=== PATIENT | male | born 1990 | race Caucasian/White ===

== ENCOUNTER 2020-01-12 03:36 | Inpatient (IN) | payer MEDICAID, SELFPAY ==
[2020-01-12] VITALS (8 sets, daily range): BP systolic 114–153; BP diastolic 76–103; PULSE 71–109; RESP 16–18; TEMP 36.6–37.1; O2SAT 95–100; BMI 25.9; BMI 25.2; BMI 25.3
--- NOTE | 2020-01-12 03:50 | ED.VIS.GEN ---
History of Present Illness Chief Complaint: Substance Abuse Narrative: 29-year-old male with a history of methamphetamine and fentanyl use since age 17 presents requesting inpatient detox. He states that he has never been in formal detox before. He uses methamphetamine and fentanyl by snorting daily. He denies alcohol use or other drug use. He denies a history of depression or suicidal thoughts/ideation. His last use was 8 PM last evening-fentanyl. Prior similar symptoms: Yes Capacity - Capacity Assessment Tool Can the patient make a choice & communicate that choice?: Yes Past Medical History - Allergies and Home Meds Allergies/Adverse Reactions: Allergies No Known Allergies Allergy (Verified 01/12/20 03:37) Prior records reviewed: Yes Smoking Status: Current every day smoker Review of Systems General: Denies: Chills, Fever, Sweats Eyes: Denies: Visual changes - bilaterally, Diplopia ENT: Denies: Rhinorrhea, Sore throat Cardiovascular: Denies: Chest pain, Palpitations Respiratory: Denies: Dyspnea, Cough, Dyspnea on exertion Gastrointestinal: Denies: Abdominal pain, Nausea, Vomiting, Diarrhea, Melena, Hematochezia Genitourinary: Denies: Dysuria, Hematuria, Frequency Musculoskeletal: Denies: Back pain, Extremity Pain Skin: Denies: Rash, Wounds Neurological: Denies: Headache, Weakness, Numbness Physical Exam Vital Signs/Narrative: Vital Signs Temp Pulse Resp BP Pulse Ox 01/12/20 03:38 98.2 F 104 H 18 153/103 H 99 General: Well nourished, Well developed, No Acute Distress Head: Normocephalic, Atraumatic Eyes: Perrl, EOMI ENT: Moist mucous membranes, No rhinorrhea Neck: Supple, Nontender Cardiovascular: Regular rate, Regular rhythm, No murmurs Respiratory: No distress, CTA bilaterally, Chest nontender Abdomen: Soft, Nontender, Nondistended, Normal bowel sounds Back: Nontender, Normal Inspection Extremities: Nontender, No edema Skin: Normal color, No rash Neurological: Alert, Oriented x3, Cranial nerves II-XII grossly intact, Normal Strength, Normal Sensation Psychological: Normal affect, Normal Mood Diagnostic/Tx/Re-eval - Medical Decision Making Adequate clearance labs are within normal limits. Talk screen is positive for fentanyl, opiates, marijuana, and methamphetamines. He was medically cleared. I spoke with the hospitalist. He will be admitted to detox. His [facility] score was calculated at 25. ED Disposition - Plan for ED Patient: Disposition: Acute Care Hospital [facility] Diagnosis: Opiate withdrawal, Fentanyl dependence, Methamphetamine abuse, Cannabis abuse
[2020-01-12 04:14] LABS: Amphetamine Urine VISTA POSITIVE (<1000 ng/mL); Barbiturate Urine VISTA NEGATIVE (< 200 ng/mL); Benzodiazepine Urine VISTA NEGATIVE (< 200 ng/mL); Cocaine Urine VISTA NEGATIVE (< 300 ng/mL); Ecstacy Urine VISTA POSITIVE (< 500 ng/mL); Methadone Urine VISTA NEGATIVE (< 300 ng/mL); PCP Urine VISTA NEGATIVE (< 25 ng/mL); THC Urine VISTA POSITIVE (< 50 ng/mL); Vista UDS pH Range 6
[2020-01-12 04:20] LABS: ALB/GLOB Ratio 1.1 RATIO (0.9-2.4); AST(SGOT) 15 U/L (15-37); Alanine Aminotransfer ALT/SGPT 26 U/L (16-61); Albumin, Serum 3.9 g/dL (3.2-5.0); Alkaline Phosphatase 59 U/L (45-117); Anion Gap 6 (5-15); BUN 17 mg/dL (7-18); BUN/Creat Ratio 14.4 RATIO (10-20); Chloride 104 mmol/L (98-107); Creatinine, Serum 1.18 mg/dL (0.70-1.30); EST Glomerular Filtration Rate 78 mL/min (>60); Est Glom Filt Rate - Afr Amer 95 mL/min (>60); Estimated Creatinine Clearance 97.09 ml/min; Globulin 3.7 g/dL (2.2-4.2); Glucose 97 mg/dL (74-106); Potassium 3.2 mmol/L (3.5-5.1); Protein, Total 7.6 g/dL (6.4-8.2); Sodium Level 139 mmol/L (136-145)
--- NOTE | 2020-01-12 04:21 | PCM.HP.STD ---
Problem List (1) Opiate withdrawal Status: Acute (2) Tobacco use Status: Chronic (3) Cannabis abuse Status: Chronic (4) Methamphetamine abuse Status: Chronic (5) Fentanyl dependence Status: Chronic History of Present Illness Date of Admission: 01/12/20 Chief Complaint: Acute opiate withdrawal The patient is a 29 y/o M w/ PMHx: Tobacco use, Polysubstance abuse inclusive of snorted methamphetamine, cannabis smoked and more recently usage of fentanyl snorted for at least the past 6 months, noted he started meth at age 17 who presents to the [facility] ED on 01/12/20 w/ noted opiate withdrawal onset starting early this am following last dose 7-8 pm (1/2 gm) on 01/11/20 with abdominal pain with nausea in addition to diarrhea, generalized body aches and pains, rhinorrhea, piloerection, fatigue, severe bilateral lower extremity restless leg, sweating, yawning. Patient interested in attaining clean status and has never been in acute detoxification prior. Work-up in the ED included T 98.2, heart rate 104, BP 153/103, respiratory rate 18, 99% on room air, CBC pending upon admission, CMP with potassium 3.2 otherwise not market appearing, urine drug screen with positive opiate, amphetamine, methamphetamine, cannabis, ethyl alcohol level pending. Past Medical History Past Medical History (Chronic Problems): Chronic Problems Tobacco use (Chronic) Cannabis abuse (Chronic) Methamphetamine abuse (Chronic) Fentanyl dependence (Chronic) Allergies No Known Allergies Allergy (Verified 01/12/20 03:37) Home Medications: Ambulatory Orders Medication Instructions Recorded NK 01/12/20 Surgical History: - - History of trauma to left lower extremity with compartment syndrome and follow-up surgical intervention. Psychiatric History: No pertinent psych hx Lives: With Family - Patient was with his mother who does not use any substances. Smoking Status: Current every day smoker - Patient with ongoing 1 pack/day cigarette tobacco usage. Tobacco Use: Cigarettes Alcohol: Occasional Drugs: - - Patient remotely used IV drugs and has smoked methamphetamine but primarily now will smoke cannabis, snort methamphetamine and snorted fentanyl. - *Family History Maternal History Items: Hypertension Paternal History Items: - - Father with no market medical history including heart disease, diabetes, cancer. Review of Systems Constitutional: Reports: Anorexia, Malaise, Weakness, Fatigue. Denies: Chills, Fever, Weight Change HEENT: Reports: Nasal Congestion, Sinus Congestion. Denies: Head Aches, Sinus Drainage Cardiovascular: Denies: Chest Pain, Palpitations Respiratory: Denies: Cough, Shortness of breath at rest, Sputum production Gastrointestinal: Reports: Abdominal Pain, Diarrhea, Nausea. Denies: Vomiting Genitourinary: Denies: Dysuria Musculoskeletal: Reports: Joint Pain, Muscle pain. Denies: Joint Tenderness Skin: Denies: Rash, Wounds Neurological: Reports: - - Evident restless legs bilateral lower extremities.. Denies: Focal weakness, Numbness, Tingling Psychiatric: Denies: Anxiety, Depression, Homicidal Ideations, Suicidal Ideations Hematologic/ Lymphatic: Denies: Easy Bruising, Easy Bleeding VTE Information - Inpt Only VTE Present on Admission: No VTE Mechan Device Prophylaxis: None VTE Pharm Prophylaxis ordered?: No Reason prophylaxis not ordered:: Treatment Not Indicated Patient Problems: Active and Suspected Problems Opiate withdrawal (Acute) Subjective: Seated upright in the ED bed, agitated, moving extremities. Objective: Physical Examination: General: awake, alert, oriented x 3 and cooperative, seated upright in the ED bed, agitated, evident withdrawal. Skin: normal color, turgor, no icterus, cyanosis aside occasional abrasions to the extremities. HEENT: AT/NC, EOMI, PERRLA, MMM, no carotid bruits or JVD noted. Lungs: CTA bilaterally, moderate effort, mild decrease BL bases, no rales, ronchi or wheezing. Heart: Mildly tachycardic with regular rhythm; no gallop, rub audible. Abdomen: soft, NTTP, ND, normal BS, no obvious HSM. Extremities: no cyanosis, clubbing, or edema. Neurological: patient awake, alert, oriented x 3; cognitive function appears baseline intact; pupils equally reactive to light and accomodation; cranial nerves II-XII grossly normal, moving all 4 extremities, no focal deficits, strength preserved but obviously agitated, moving lower extremities throughout examination but at the same time fatigued appearance. Psychiatric: affect appears fatigued and agitated, no acute evidence of depressive or anxiety feelings. - Physical Exam Vitals/I&O's: Vital Signs Temp Pulse Resp BP Pulse Ox 98.2 F 104 H 18 153/103 H 99 01/12/20 03:38 01/12/20 03:38 01/12/20 03:38 01/12/20 03:38 01/12/20 03:38 Oxygen Delivery Method Room Air Weight: 180 lb 5.41 oz Body Mass Index (BMI) 25.9 Laboratory Results 01/12/20 03:50: Sodium 139, Potassium 3.2 L, Chloride 104, Carbon Dioxide 29.0, Anion Gap 6, BUN 17, Creatinine 1.18, Estim Creat Clear Calc 97.09, Est GFR (MDRD) Af Amer 95, Est GFR (MDRD) Non-Af 78, BUN/Creatinine Ratio 14.4, Glucose 97, Calcium 9.0, Total Bilirubin 0.30, AST 15, ALT 26, Alkaline Phosphatase 59, Total Protein 7.6, Albumin 3.9, Globulin 3.7, Albumin/Globulin Ratio 1.1 01/12/20 03:50: Ethyl Alcohol Pending 01/12/20 03:55: Urine Opiates Screen POSITIVE H, Urine Methadone Screen NEGATIVE, Ur Barbiturates Screen NEGATIVE, Ur Phencyclidine Scrn NEGATIVE, Ur Amphetamines Screen POSITIVE H, U Methamphetamin-MDMA POSITIVE H, U Benzodiazepines Scrn NEGATIVE, Urine Cocaine Screen NEGATIVE, U Cannabinoids Screen POSITIVE H, Ur Drug Screen Comment Assessment/Plan All Active Problems Opiate withdrawal (Acute) The patient is a 29 y/o M w/ PMHx: Tobacco use, Polysubstance abuse inclusive of snorted methamphetamine, cannabis smoked and more recently usage of fentanyl snorted for at least the past 6 months, noted he started meth at age 17 who presents to the [facility] ED on 01/12/20 w/ noted opiate withdrawal onset. 1. Acute Opiate Withdrawal: Will admit to [facility], routine labs obtained in the ED except CBC which will be obtained, urine drug screen notable, will initiate and continue on tapering course of Subutex, as needed PRN agents for symptom control, 1 L normal saline, IV antiemetics, Tylenol as needed for pain. Consult case management to assist with transition following discharge and arranging [facility] involvement. 2. Polysubstance Abuse: To be cautious despite denied IVDA will obtain HIV and hepatitis panel although patient currently not candidate for hep C treatment as needs to be clean, sober x 6 months, documented attendance NA or AA meetings, counseling and ongoing negative drug screens. Encouraged PCP establishment and follow-up. 3. Tobacco Abuse: Encouraged cessation, inpatient consultation per RT, NR if desired. 4. Hypokalemia: Admission K+ 3.2, supplementation given, repeat level in AM. 5. DVT prophylaxis: Low risk, ambulation encouraged. Inpatient E&M: 80013 Init Hosp L3
[2020-01-12 04:31] LABS: Alcohol, Blood (Medical)-Serum < 3.0 mg/dL
[2020-01-12] MEDS: 0.9% Normal Saline 1,000 ML 999 ML IV (05:51)
[2020-01-12] MEDS: 0.9% Saline Lock 10 ML Syringe IV (05:58)
[2020-01-12 06:06] LABS: Absolute Lymphocyte Count 3.28 X10^3/uL (0.83-4.51); Absolute Neutrophil Count 5.1 X10^3/uL (2.0-7.7); Basophil# 0.04 X10^3/uL; Basophil% 0.4 % (0-1); Eosinophil# 0.16 X10^3/uL; Eosinophils% 1.7 % (0-5); Hematocrit 43.7 % (40-54); Lymphocyte # 3.28 X10^3/ul (4.0); Lymphocyte % 33.8 % (19-41); Mean Corp Hgb Conc 34.3 g/dL (32-36); Mean Corpuscular Hgb 31.6 pg (27.0-32.0); Mean Platelet Vol. 9.2 fl (6.2-12.0); Monocyte# 1.05 X10^3/uL; Monocyte% 10.8 % (0-10); NRBC Flagged by Analyzer 0 % (0-5); Neutrophil # 5.13 X10^3/uL (2.7-7.7); Platelet Count 249 K/mm3 (150-450); RBC Distribution Width CV 11.6 % (11.6-14.6); Red Blood Count 4.75 M/mm3 (4.6-6.2); White Blood Count 9.7 K/mm3 (4.4-11.0)
[2020-01-12] MEDS: Buprenorphine HCl 2 MG TAB.SUBL SL ×3 (07:23→23:54)
--- NOTE | 2020-01-12 07:44 | PCM.PN.BLA ---
Progress Note 29-year-old gentleman with history of substance abuse admitted with acute opioid withdrawal 1. Acute opioid withdrawal ?Admitted to regular nursing floor where patient is currently being managed with Subutex for medical stabilization 2. Polysubstance abuse ?Patient took screen was positive for methamphetamines and cannabis as well as fentanyl counseled on cessation 3. Tobacco dependence -counseled on cessation, offered nicotine patch for tobacco cravings 4. Hypokalemia ?Corrected per protocol 5. DVT prophylaxis ?Low risk did encourage early ambulation STROKE Vital Signs/Narrative: Vital Signs Temp Pulse Resp BP Pulse Ox 01/12/20 07:15 84 01/12/20 06:53 95 01/12/20 05:37 98 F 109 H 16 144/91 H 96 01/12/20 05:00 98.2 F 104 H 16 153/103 H 97
--- NOTE | 2020-01-12 08:59 | CASEMGMT ---
Social Work Note Pt is at [facility] for Opiate withdrawal. SW placed a call to Radha at [facility] and left message that pt will need to be seen. Cristina Anderson IT GENERALIST, REVENUE SETTLEMENTS ADMINISTRATOR
[2020-01-12] MEDS: Methocarbamol 750 MG Tablet 1500 MG PO ×2 (09:19→17:57)
[2020-01-12] MEDS: cloNIDine HCl 0.1 MG Tablet PO ×2 (09:19→17:57)
[2020-01-12 09:46] LABS: HIV - WCH Non-Reactive (Nonreactive); Hepatitis B Surface Antibody Non-Reactive; Hepatitis B Surface Antigen Non-Reactive (Nonreactive); Hepatitis C Antibody Non-Reactive (Nonreactive)
--- NOTE | 2020-01-12 13:50 | ADDICTION ---
This ticket writer met with patient in his room to complete initial [facility] assessment and begin discharge planning. patient was alert/oriented x4 and participated actively throughout meeting. This ticket writer provided patient with resources for ongoing treatment and encouraged patient to engage in follow-up services following discharge from [facility]. Patient amiable and completed intake paperwork for [facility]. Patient agreeable to engage in Residential treatment following discharge from [facility] and will engage in biopsychosocial assessment tomorrow (01/13/2020). Patient signed SARAH for [facility]. This ticket writer will collaborate with [facility] Residential Admissions Team for admit. [facility] LOC: 4.0 Medically Managed Intensive Inpatient Services Dimension1: Acute Intoxication and/or Withdrawal Potential Patient reports last date of use (Fentanyl/Methamphetamine) was at 8pm 01/11/2020. He reprots that Methamphetamine is his primary doc. He reports use by insufflation, no hx of IV use. He reports some withdrawal symptoms, including restless leg, irritability, anxiety, nausea, vomiting, diarrhea. Client's chart indicates that he is prescribed Buprenorphine for symptom management. Dimension2: Biomedical Conditions and Complications Patient reports no significant BMC/C. Dimension3: Emotional, Behavioral or Cognitive Conditions/Concerns E: Patient presented with euthymic mood/broad affect. Reports some irritability/anxiety related to withdrawal symptoms. Reports no current or historical SI/HI. Has regulated mood. This ticket writer will further assess at next session. B: Reports ability to manage impulses. Reports ability to care for self. C: Patient was alert/oriented x4 and participated appropriately throughout session. Presents with average intelligence. Dimension4: Readiness for Change Patient states that he is willing to do anything to get sober. He appears to be in the preparation stage of change as evidenced by his identification of problem behaviors with willingness to plan for ongoing treatment/behavioral modification. He reports internal and external motivation. Patient appears to have insight into addiction and consequences. Willing to engage in Residential treatment following medical withdrawal management. Dimension5: Relapse, Continued Use or Continued Problem Potential Patient is at a high risk of relapse based on report of active, regular use (methamphetamine) for 6 years and recent use of Fentanyl (1 month). Patient reports minimal relapse prevention skills/coping skills and reports no prior sober time since initial use of methamphetamine. Patient reports cravings/triggers to use and states that he will likely relapse if he does not compete medical withdrawal management and engage in ongoing, follow-up treatment. Dimension6: Recovery/Living Environment Patient reports that he has a safe, sober, supportive place to go following medical withdrawal management but is requesting to be screened for Residential treatment with [facility]. He has an active warrant in his home county. He reports limited sober support/ no mutual aid attendance. Patient did not report current employment.
--- NOTE | 2020-01-12 14:51 | CHAPLAIN ---
Type of Pastoral Visit _x__ Initial Visit ___ Follow-up Visit ___ On-call Visit ___ General Patient Visit ___ Spiritual Assessment ___ Family Conference ___ Bereavement ___ Rapid Response ___ Code Blue ___ Other (describe below) Pastoral Care Referral From _x__ Patient ___ Family ___ Nurse ___ Physician ___ Broach Grinder ___ Artificial Snow Making Machine Operator ___ Other (describe below) Sacrament/Intervention _x__ Active listening ___ Anointing ___ Christianity ___ Bereavement ___ Communion ___ Arianna exploration ___ _x__ Life review _x__ Prayer ___ Reconciliation ___ Sacrament of Sick _x__ Supportive presence ___ Wedding ___ Other (describe below) Pastoral Comments patient was very open to talk about self, his addiction, life history, and frequently stated, I am so done with this referring to addiction; pt states he started with drugs at age 17 and does not know what it is like to feel good; pt is willing to enter rehab and plans to participate in [facility] program at discharge; pt says that he has good support from his mother/step-father with whom he lives and that support is available from the great people that I work with at [facility] who are more like family to me; patient does not have a arianna group connection or heritage but states I am not opposed to it, but just never have had that; patient is open to further supportive visits with this multi care technician and was welcoming of a prayer at conclusion of visit
[2020-01-12] MEDS: hydrOXYzine PAM 25 MG Capsule 50 MG PO (17:57)
[2020-01-12] MEDS: Dicyclomine 10 MG Capsule 20 MG PO (17:57)
[2020-01-12] MEDS: traZODone 100 MG Tablet PO (23:58)
[2020-01-13 02:57] VITALS: BP 109/72; PULSE 69; RESP 16; TEMP 36.4; O2SAT 98
[2020-01-13] MEDS: Methocarbamol 750 MG Tablet 1500 MG PO ×2 (03:05→14:44)
[2020-01-13 07:00] VITALS: O2SAT 96
--- NOTE | 2020-01-13 07:34 | PCM.PN.HOSP ---
Patient Problems: Active and Suspected Problems Opiate withdrawal (Acute) Reason for Visit: acute opioid withdrawal Subjective: 29-year-old gentleman with history of substance abuse admitted with acute opioid withdrawal Objective: GENERAL: cooperative HEENT: Atraumatic; EYES; Anicteric, Normal Conjunctiva NECK; supple, normal thyroid, RESPIRATORY: Diminished to auscultation CARDIOVASCULAR: Regular S1 S2, GI: soft, normoactive bowel sounds, : No Renal angle tenderness; EXTREMITIES: No edema, no clubbing, MUSCULOSKELETAL: no muscle waisting NEURO: Awake; no lateralizing signs. SKIN: No Rash PSYCH; Flat affect Vitals/I&O's: Vital Signs Temp Pulse Resp BP Pulse Ox 97.5 F L 69 16 109/72 98 01/13/20 02:57 01/13/20 02:57 01/13/20 02:57 01/13/20 02:57 01/13/20 02:57 Oxygen Delivery Method Room Air Weight: 80.1 kg Body Mass Index (BMI) 25.2 Intake and Output for Last 24 Hours 01/11/20 01/12/20 01/13/20 23:59 23:59 23:59 Intake Total 2180 / 2180 300 / 300 Balance 2180 / 2180 300 / 300 Laboratory Results 01/12/20 05:50: Hep Bs Antigen Non-Reactive, Hep Bs Antibody Non-Reactive, Hepatitis C Antibody Non-Reactive, HIV 1&2 Antibody Non-Reactive Current Medications Buprenorphine HCl (Buprenorphine Hcl) 4 mg SL Q8H RHYS; Taper Stop: 01/15/20 07:59 Last Admin: 01/12/20 23:54 Dose: 4 mg Documented by: Clonidine (Catapres) 0.1 mg PO Q8H PRN PRN PRN Reason: RESTLESSNESS Last Admin: 01/12/20 17:57 Dose: 0.1 mg Documented by: Dextrose (D50w Syringe) 0 gm IV X1 PRN; Protocol PRN Reason: Hypoglycemia Dicyclomine HCl (Bentyl) 20 mg PO Q6H PRN PRN PRN Reason: Abdominal Discomfort Last Admin: 01/12/20 17:57 Dose: 20 mg Documented by: Gabapentin (Neurontin) 300 mg PO Q8H PRN PRN PRN Reason: moderate to severe anxiety Glucagon () 1 mg IM .X1 PRN PRN Reason: Hypoglycemia Hydralazine HCl (Apresoline Iv) 10 mg IV Q4H PRN PRN PRN Reason: SBP > 160 Hydroxyzine Pamoate (Vistaril Pamoate Capsule) 50 mg PO Q6H PRN PRN PRN Reason: mild anxiety Last Admin: 01/12/20 17:57 Dose: 25 mg Documented by: Loperamide HCl (Imodium) 2 mg PO Q4H PRN PRN PRN Reason: LOOSE STOOLS Methocarbamol (Methocarbamol) 1,500 mg PO Q6H PRN PRN PRN Reason: MUSCLE SPASM Last Admin: 01/13/20 03:05 Dose: 1,500 mg Documented by: Nicotine (Nicoderm Cq (Pbkc)) 21 mg TRANSDERM. DAILY RHYS Last Admin: 01/12/20 05:50 Dose: 21 mg Documented by: Nutritional Formula (Lactose Free) (Ensure Enlive) 120 ml PO 4X/DAY RHYS Last Admin: 01/12/20 20:55 Dose: Not Given Documented by: Ondansetron HCl (Zofran) 8 mg PO Q8H PRN PRN PRN Reason: NAUSEA Sodium Chloride () 10 - 40 ml IV UD PRN PRN Reason: SALINE FLUSH Last Admin: 01/12/20 05:58 Dose: 10 ml Documented by: Trazodone HCl (Desyrel) 100 mg PO QHS PRN PRN PRN Reason: INSOMNIA Last Admin: 01/12/20 23:58 Dose: 100 mg Documented by: Medical Necessity - Tobacco Use Smoking Status: Current every day smoker Tobacco Use: Cigarettes Assessment/Plan All Active Problems Opiate withdrawal (Acute) 29-year-old gentleman with history of substance abuse admitted with acute opioid withdrawal 1. Acute opioid withdrawal ?Admitted to regular nursing floor where patient is currently being managed with Subutex for medical stabilization 2. Polysubstance abuse ?Patient took screen was positive for methamphetamines and cannabis as well as fentanyl counseled on cessation 3. Tobacco dependence -counseled on cessation, offered nicotine patch for tobacco cravings 4. Hypokalemia ?Corrected per protocol 5. DVT prophylaxis ?Low risk did encourage early ambulation Inpatient E&M: 50322 Subs Hosp L2
[2020-01-13] MEDS: Buprenorphine HCl 2 MG TAB.SUBL SL ×3 (07:53→23:47)
[2020-01-13 07:58] VITALS: BP 104/56; PULSE 72; RESP 18; TEMP 36.5; O2SAT 98
--- NOTE | 2020-01-13 14:22 | ADDICTION ---
This senior underwriter met with patient, in his room, to complete full diagnostic assessment, ASA assessment and discharge plan. Patient was alert/oriented x4 and participated appropriately throughout this session. This senior underwriter will provide [facility] client's full assessment upon completion. Patient has committed to engage in residential treatment following discharge from [facility]. This senior underwriter will coordinate with [facility] to provide continuity of care for patient. [facility] LOC: 4.0 Medically Managed Intensive Inpatient Treatment Dimension1: Acute Intoxication/Withdrawal Potential: Patient reports that his last date of use was 01/11/2020. Is currently engaged in medical withdrawal management with [facility] and is utilizing Buprenorphine to manage symptoms. He reports that he has experienced the following withdrawal symptoms: nausea, vomiting, fatigue, agitation, body aches, restless leg, sweating. He reports that these symptoms are currently managed. Patient is not interested in tobacco cessation. Dimension2: Biomedical Conditions/Concerns No significant BMC/C reported. Dimension3: Emotional, Behavioral, Cognitive Conditions/Complications E: Patient presented with euthymic mood/broad affect. Appears emotionally regulated. Reports minimal depression/anxiety symptoms noting that these symptoms are manageable/situational. B: Patient reports no SI/HI, isolation, aggression, outbursts or desire to self-harm C: Patient was alert/oriented, appeared to understand session content and appears able to utilize abstract thinking. Presents with average intelligence. Dimension4: Readiness to Change Patient reports willingness to engage with Residential following medical withdrawal management, but appeared resistant to directly admitting due to legal issues. Patient appears to be in the preparation stage of change as evidenced by his identification of problem behaviors with verbalization of plans to modify behaviors. Dimension5: Relapse, Continued Use or Continued Problem Potential Patient is at a high risk of relapse based on extensive use history, rapid progression of use, no significant period of abstinence. He reports no knowledge of coping skills/relapse prevention skills. Dimension6: Recovery/Living Environment Patient states that he lives with his mother and that the home is a safe environment, however, he reports that he has used in the home and outside of the home while living there. He reports that his mother is his primary support person. He did not report other sober support people, is not affiliated with mutual aid/12 step groups or voodoo organization. He is engaged with [facility] Peer Support and reports willingness to engage in Residential treatment following completion of medical withdrawal management.
[2020-01-13] MEDS: hydrOXYzine PAM 25 MG Capsule 50 MG PO (14:44)
[2020-01-13] MEDS: Dicyclomine 10 MG Capsule 20 MG PO (14:45)
[2020-01-13] MEDS: cloNIDine HCl 0.1 MG Tablet PO (14:52)
[2020-01-13 15:02] VITALS: BP 122/75; PULSE 79; RESP 18; TEMP 36.7; O2SAT 98
[2020-01-13 20:18] VITALS: BP 111/61; PULSE 80; RESP 16; TEMP 36.8; O2SAT 97
[2020-01-13] MEDS: traZODone 100 MG Tablet PO (23:51)
[2020-01-14 02:34] VITALS: BP 105/56; PULSE 65; RESP 16; TEMP 36.8; O2SAT 98
--- NOTE | 2020-01-14 07:43 | PN_ITS ---
Patient Problems: Active and Suspected Problems Opiate withdrawal (Acute) Reason for Visit: acute opioid withdrawal Subjective: Patient is a 29-year-old gentleman currently on admission for acute opiate withdrawal undergoing medical stabilization. Seen this a.m. still complains of leg cramps but is overall condition continues to improve Objective: GENERAL: cooperative HEENT: Atraumatic; EYES; Anicteric, Normal Conjunctiva NECK; supple, normal thyroid, RESPIRATORY: Diminished to auscultation CARDIOVASCULAR: Regular S1 S2, GI: soft, normoactive bowel sounds, : No Renal angle tenderness; EXTREMITIES: No edema, no clubbing, MUSCULOSKELETAL: no muscle waisting NEURO: Awake; no lateralizing signs. SKIN: No Rash PSYCH; Flat affect Vitals/I&O's: Vital Signs Temp Pulse Resp BP Pulse Ox 98.3 F 65 16 105/56 L 98 01/14/20 02:34 01/14/20 02:34 01/14/20 02:34 01/14/20 02:34 01/14/20 02:34 Oxygen Delivery Method Room Air Weight: 80.1 kg Body Mass Index (BMI) 25.2 Intake and Output for Last 24 Hours 01/12/20 01/13/20 01/14/20 23:59 23:59 23:59 Intake Total 2180 / 2180 1500 / 1800 500 / 500 Balance 2180 / 2180 1500 / 1800 500 / 500 Current Medications Buprenorphine HCl (Buprenorphine Hcl) 2 mg SL Q8H RHYS; Taper Stop: 01/15/20 07:59 Last Admin: 01/13/20 23:47 Dose: 2 mg Documented by: Clonidine (Catapres) 0.1 mg PO Q8H PRN PRN PRN Reason: RESTLESSNESS Last Admin: 01/13/20 14:52 Dose: 0.1 mg Documented by: Dextrose (D50w Syringe) 0 gm IV X1 PRN; Protocol PRN Reason: Hypoglycemia Dicyclomine HCl (Bentyl) 20 mg PO Q6H PRN PRN PRN Reason: Abdominal Discomfort Last Admin: 01/13/20 14:45 Dose: 20 mg Documented by: Gabapentin (Neurontin) 300 mg PO Q8H PRN PRN PRN Reason: moderate to severe anxiety Glucagon () 1 mg IM .X1 PRN PRN Reason: Hypoglycemia Hydralazine HCl (Apresoline Iv) 10 mg IV Q4H PRN PRN PRN Reason: SBP > 160 Hydroxyzine Pamoate (Vistaril Pamoate Capsule) 50 mg PO Q6H PRN PRN PRN Reason: mild anxiety Last Admin: 01/13/20 14:44 Dose: 50 mg Documented by: Loperamide HCl (Imodium) 2 mg PO Q4H PRN PRN PRN Reason: LOOSE STOOLS Methocarbamol (Methocarbamol) 1,500 mg PO Q6H PRN PRN PRN Reason: MUSCLE SPASM Last Admin: 01/13/20 14:44 Dose: 1,500 mg Documented by: Nicotine (Nicoderm Cq (Pbkc)) 21 mg TRANSDERM. DAILY [facility] Last Admin: 01/13/20 07:53 Dose: 21 mg Documented by: Nutritional Formula (Lactose Free) (Ensure Enlive) 120 ml PO 4X/DAY [facility] Last Admin: 01/13/20 20:29 Dose: 120 ml Documented by: Ondansetron HCl (Zofran) 8 mg PO Q8H PRN PRN PRN Reason: NAUSEA Sodium Chloride () 10 - 40 ml IV UD PRN PRN Reason: SALINE FLUSH Last Admin: 01/12/20 05:58 Dose: 10 ml Documented by: Trazodone HCl (Desyrel) 100 mg PO QHS PRN PRN PRN Reason: INSOMNIA Last Admin: 01/13/20 23:51 Dose: 100 mg Documented by: Medical Necessity - Tobacco Use Smoking Status: Current every day smoker Tobacco Use: Cigarettes Assessment/Plan All Active Problems Opiate withdrawal (Acute) 29-year-old gentleman with history of substance abuse admitted with acute opioid withdrawal 1. Acute opioid withdrawal ?Admitted to regular nursing floor where patient is currently being managed with Subutex for medical stabilization ?01/14/2020: Patient continues to improve clinically symptoms martinez. 2. Polysubstance abuse ?Patient took screen was positive for methamphetamines and cannabis as well as fentanyl counseled on cessation 3. Tobacco dependence -counseled on cessation, offered nicotine patch for tobacco cravings 4. Hypokalemia ?Corrected per protocol 5. DVT prophylaxis ?Low risk did encourage early ambulation Inpatient E&M: 77751 [facility] Hosp L2
[2020-01-14 08:50] VITALS: BP 114/64; PULSE 84; RESP 18; TEMP 36.8; O2SAT 98
[2020-01-14] MEDS: Buprenorphine HCl 2 MG TAB.SUBL SL ×2 (08:55→20:39)
[2020-01-14 14:02] VITALS: BP 103/64; PULSE 100; RESP 16; TEMP 36.8; O2SAT 97
[2020-01-14] MEDS: Gabapentin 300 MG Capsule PO (14:02)
--- NOTE | 2020-01-14 16:00 | ADDICTION ---
This account underwriter met with patient in his room to finalize d/c plan. Patient plans to admit directly into [facility] following discharge from [facility] and is amiable to this recommendation. He plans for his mother to transport him from [facility] directly to [facility] to complete admission.
[2020-01-14] MEDS: hydrOXYzine PAM 25 MG Capsule 50 MG PO (19:00)
[2020-01-14] MEDS: Methocarbamol 750 MG Tablet 1500 MG PO (19:00)
[2020-01-14] MEDS: traZODone 100 MG Tablet PO (20:39)
[2020-01-14 20:53] VITALS: BP 118/69; PULSE 92; RESP 16; TEMP 36.2; O2SAT 97
[2020-01-15 01:49] VITALS: BP 109/65; PULSE 87; RESP 16; TEMP 36.6; O2SAT 99
--- NOTE | 2020-01-15 07:32 | DCINST_ITS ---
- Discharge Diagnoses Current Active Problems: Current Active and Chronic Problems Opiate withdrawal (Acute) Tobacco use (Chronic) Cannabis abuse (Chronic) Methamphetamine abuse (Chronic) Fentanyl dependence (Chronic) You will use the following diet at home:: No restrictions Allergies/Adverse Reactions: Allergies No Known Allergies Allergy (Verified 01/12/20 03:37) Medications to take at Discharge [facility] 01/12/20 Primary Care Physician: NOT,DEFINED [NON-STAFF] - Test Results: Test results from this visit will be discussed in further detail at your follow- up appointment, if applicable. Please Follow Up With: [facility]
--- NOTE | 2020-01-15 07:33 | PCM.DC.SUM ---
Discharge Date and Diagnosis - Problem List Patient Problems: Active and Suspected Problems Opiate withdrawal (Acute) Date of Admission: 01/12/20 Date of Discharge: 01/15/20 - Primary Discharge Diagnosis Acute Problems: Active Problems Opiate withdrawal (Acute) - Secondary Discharge Diagnosis Chronic Problems: Chronic Problems Tobacco use (Chronic) Cannabis abuse (Chronic) Methamphetamine abuse (Chronic) Fentanyl dependence (Chronic) Hospital Course and Treatment Summary of Care Provided: 29-year-old gentleman with history of substance abuse admitted with acute opioid withdrawal 1. Acute opioid withdrawal ?Admitted to regular nursing floor where patient is currently being managed with Subutex for medical stabilization ?01/14/2020: Patient continues to improve clinically symptoms martinez. ?01/15/2020: Patient was deemed stable for discharge. Patient will follow-up at [facility] counseling services for subsequent care 2. Polysubstance abuse ?Patient took screen was positive for methamphetamines and cannabis as well as fentanyl counseled on cessation 3. Tobacco dependence -counseled on cessation, offered nicotine patch for tobacco cravings 4. Hypokalemia ?Corrected per protocol 5. DVT prophylaxis ?Low risk did encourage early ambulation Patient Problems: Active and Suspected Problems Opiate withdrawal (Acute) Objective: GENERAL: cooperative HEENT: Atraumatic; EYES; Anicteric, Normal Conjunctiva NECK; supple, normal thyroid, RESPIRATORY: Diminished to auscultation CARDIOVASCULAR: Regular S1 S2, GI: soft, normoactive bowel sounds, : No Renal angle tenderness; EXTREMITIES: No edema, no clubbing, MUSCULOSKELETAL: no muscle waisting NEURO: Awake; no lateralizing signs. SKIN: No Rash PSYCH; Flat affect - Physical Exam Vitals/I&O's: Vital Signs Temp Pulse Resp BP Pulse Ox 98 F 87 16 109/65 99 01/15/20 01:49 01/15/20 01:49 01/15/20 01:49 01/15/20 01:49 01/15/20 01:49 Oxygen Delivery Method Room Air Weight: 80.1 kg Body Mass Index (BMI) 25.2 Intake and Output for Last 24 Hours 01/13/20 01/14/20 01/15/20 23:59 23:59 23:59 Intake Total 1500 / 1800 800 / 800 Balance 1500 / 1800 800 / 800 Current Medications Buprenorphine HCl (Buprenorphine Hcl) 2 mg SL Q12H RHYS; Taper Stop: 01/15/20 07:59 Last Admin: 01/14/20 20:39 Dose: 2 mg Documented by: Clonidine (Catapres) 0.1 mg PO Q8H PRN PRN PRN Reason: RESTLESSNESS Last Admin: 01/13/20 14:52 Dose: 0.1 mg Documented by: Dextrose (D50w Syringe) 0 gm IV X1 PRN; Protocol PRN Reason: Hypoglycemia Dicyclomine HCl (Bentyl) 20 mg PO Q6H PRN PRN PRN Reason: Abdominal Discomfort Last Admin: 01/13/20 14:45 Dose: 20 mg Documented by: Gabapentin (Neurontin) 300 mg PO Q8H PRN PRN PRN Reason: moderate to severe anxiety Last Admin: 01/14/20 14:02 Dose: 300 mg Documented by: Glucagon () 1 mg IM .X1 PRN PRN Reason: Hypoglycemia Hydralazine HCl (Apresoline Iv) 10 mg IV Q4H PRN PRN PRN Reason: SBP > 160 Hydroxyzine Pamoate (Vistaril Pamoate Capsule) 50 mg PO Q6H PRN PRN PRN Reason: mild anxiety Last Admin: 01/14/20 19:00 Dose: 50 mg Documented by: Loperamide HCl (Imodium) 2 mg PO Q4H PRN PRN PRN Reason: LOOSE STOOLS Methocarbamol (Methocarbamol) 1,500 mg PO Q6H PRN PRN PRN Reason: MUSCLE SPASM Last Admin: 01/14/20 19:00 Dose: 1,500 mg Documented by: Nicotine (Nicoderm Cq (Pbkc)) 21 mg TRANSDERM. DAILY [facility] Last Admin: 01/14/20 08:55 Dose: 21 mg Documented by: Nutritional Formula (Lactose Free) (Ensure Enlive) 120 ml PO 4X/DAY [facility] Last Admin: 01/14/20 20:39 Dose: 120 ml Documented by: Ondansetron HCl (Zofran) 8 mg PO Q8H PRN PRN PRN Reason: NAUSEA Sodium Chloride () 10 - 40 ml IV UD PRN PRN Reason: SALINE FLUSH Last Admin: 01/12/20 05:58 Dose: 10 ml Documented by: Trazodone HCl (Desyrel) 100 mg PO QHS PRN PRN PRN Reason: INSOMNIA Last Admin: 01/14/20 20:39 Dose: 100 mg Documented by: Discharge Diet: No Restrictions Home Medications: Medications to take at Discharge NK 01/12/20 Primary Care Physician: NOT,DEFINED [NON-STAFF] - Please Follow Up With: [facility] Disposition: Home Minutes spent on discharge:: 25 Patient Condition:: Stable Medical Necessity - Tobacco Use Smoking Status: Current every day smoker Tobacco Use: Cigarettes Meaningful Use Info Meaningful Use Diagnoses (Choose all that apply): None applicable Inpatient E&M: 64389 [facility] Hosp
[2020-01-15 09:18] VITALS: O2SAT 95
[2020-01-15] MEDS: hydrOXYzine PAM 25 MG Capsule 50 MG PO (09:44)
[2020-01-15 09:51] VITALS: BP 115/75; PULSE 85; RESP 18; TEMP 36.6; O2SAT 99
== END 2020-01-15 10:00 | disposition home or self-care (01) | DRG 773 ==
LOC: ED 04:11 → MS3 05:09
PROVIDERS: Admitting Provider Family Medicine; Emergency Provider Emergency Medicine; Referring Provider Family Medicine; Visit Provider Internal Medicine
DX: F11.23 Opioid dependence with withdrawal (principal); F15.10 Other stimulant abuse, uncomplicated; F12.10 Cannabis abuse, uncomplicated; F17.210 Nicotine dependence, cigarettes, uncomplicated; E87.6 Hypokalemia
CPT/HCPCS: 36415; 80053; 80307; 80320; 85025; 86703; 86706; 86803; 87340; 97802; 99283; 99406; J7030; A4216; G0480

== ENCOUNTER 2020-01-22 21:30 | Emergency (ER) | payer MEDICAID, SELFPAY ==
[2020-01-12 05:16] VITALS: BMI 25.2
[2020-01-22 21:31] VITALS: BP 139/87; PULSE 80; RESP 19; TEMP 36.5; O2SAT 100; BMI 27.0
[2020-01-22 21:35] VITALS: BP 139/87; PULSE 79; RESP 19; TEMP 36.5; O2SAT 100
--- NOTE | 2020-01-22 22:14 | CT_ITS ---
STUDY: CT ABDOMEN AND PELVIS WITHOUT CONTRAST REASON FOR EXAM: Male, 29 years old. RLQ PAIN X 1 DAY, N/V, TESTICULAR PAIN, HX KS, HERNIA SX RADIATION DOSAGE (If Supplied By Facility): CTDIvol = ( 7.37 ) mGy, DLP = ( 430.91 ) mGycm TECHNIQUE: Transaxial images were obtained from the dome of the diaphragm to the symphysis pubis without oral contrast, and without intravenous contrast. Sagittal and coronal images were reconstructed. Individualized dose optimization techniques were used for this CT. COMPARISON: None. FINDINGS: The visualized lung bases are unremarkable. The visualized portions of the heart are within normal limits. Normal liver. Normal gallbladder and extrahepatic biliary system. Normal spleen. Normal pancreas. Normal bilateral adrenal glands. Normal right kidney. Normal left kidney. Normal visualized stomach. Normal small intestine. Normal colon. The appendix is visualized and appears normal. Normal abdominal aorta. Normal inferior vena cava. Normal retroperitoneum. Normal urinary bladder. Normal abdominal wall. Normal osseous structures. CT/Abdomen/Pelvis without Cont IMPRESSION: No evidence of appendicitis, acute intestinal pathology, or acute obstructive uropathy. Electronically Signed: Ryan Mota MD at 23:00 EDT Tel , Service support ,
--- NOTE | 2020-01-22 22:15 | ED.VIS.GEN ---
History of Present Illness Chief Complaint: Abd Pain Informant: Patient Narrative: Presents with right lower quadrant pain. He stated he woke up and had nausea and vomiting throughout the day. 10 times. No blood. Normal bowel movement this morning. He developed right lower abdominal pain approximately 7-8 hours ago. He describes a continuous sharp pain. Never had this before. History of inguinal hernia repair x2 bilateral when he was a young child. Just got out of rehab for narcotic abuse. He stated he has been sober. No fevers or chills. Still has his appendix and gallbladder. Severity is moderate. Relieved when he curls up in a ball and apply steady pressure to it. Denies any urinary symptoms. History of kidney stone x2 in the past - Past Medical History (1) Opiate withdrawal Status: Acute (2) Cannabis abuse Status: Chronic (3) Fentanyl dependence Status: Chronic (4) Methamphetamine abuse Status: Chronic (5) Tobacco use Status: Chronic Past Medical History - Allergies and Home Meds Allergies/Adverse Reactions: Allergies ofloxacin [From Floxin] Adverse Reaction (Verified 01/22/20 21:35) [facility] Primary Care Physician: Gordo Colon DO [NON CLINICAL AFFILIATE] - Prior records reviewed: Yes Past Medical History: - - Problem list, kidney stone Surgical History: - - History of trauma to left lower extremity with compartment syndrome and follow-up surgical intervention. Smoking Status: Current every day smoker Alcohol: None Drugs: None - Family History Maternal Family History: Reports: Hypertension Paternal Family History: Reports: - - Father with no market medical history including heart disease, diabetes, cancer. Review of Systems General: Denies: Chills, Fever, Sweats Eyes: Denies: Visual changes - bilaterally, Diplopia ENT: Denies: Rhinorrhea, Sore throat Cardiovascular: Denies: Chest pain, Palpitations Respiratory: Denies: Dyspnea, Cough, Dyspnea on exertion Gastrointestinal: Reports: Abdominal pain, Nausea, Vomiting. Denies: Diarrhea, Melena, Hematochezia Genitourinary: Denies: Dysuria, Hematuria, Frequency Musculoskeletal: Denies: Back pain, Extremity Pain Skin: Denies: Rash, Wounds Neurological: Denies: Headache, Weakness, Numbness Physical Exam Vital Signs/Narrative: Vital Signs Temp Pulse Resp BP Pulse Ox 01/22/20 21:35 97.7 F L 79 19 H 139/87 H 100 01/22/20 21:31 97.7 F L 80 19 H 139/87 H 100 General: Well nourished, Well developed, No Acute Distress Head: Normocephalic, Atraumatic Eyes: Perrl, EOMI ENT: Moist mucous membranes, No rhinorrhea Neck: Supple, Nontender Cardiovascular: Regular rate, Regular rhythm, No murmurs Respiratory: No distress, CTA bilaterally, Chest nontender Abdomen: Soft, Nondistended, Normal bowel sounds, Tender - Dear in the right lower quadrant and right inguinal area without guarding or rebound : - - Patient has a normal genital exam including penis scrotum and testicles. Normal lie. No hernias. No testicular tenderness Back: Nontender, Normal Inspection Extremities: Nontender, No edema Skin: Normal color, No rash Neurological: Alert, Oriented x3, Cranial nerves II-XII grossly intact, Normal Strength, Normal Sensation Psychological: Normal affect, Normal Mood Diagnostic/Tx/Re-eval - Medical Decision Making Given IV fluids Zofran and Toradol. Lab work and CT abdomen pelvis obtained. Lab work shows a mild leukocytosis with no left shift. Electrolytes unremarkable. Liver function test lipase normal. Urinalysis shows nothing acute. There is 2+ bacteria but no whites in his urine. There is no reds. CAT scan of his abdomen pelvis is also normal. At this time is unclear the cause of his right lower abdominal pain. There is no colitis. His appendix is normal. There is no hernia. His testicular and groin exam is normal. I do not suspect he has a testicular torsion. There is no hernia felt. There is no hernia seen on CAT scan. Patient was also given a dose of Tylenol. At this time I feel the patient can take Tylenol and ibuprofen at home. He will follow-up as an outpatient and return if he worsens. I have a low suspicion for appendicitis with a normal-appearing appendix on CAT scan. ED Disposition - Plan for ED Patient: Disposition: Home or Assisted Living Diagnosis: Right lower quadrant abdominal pain Instructions: ED Unknown Causes of Abdominal Pain Male Prescriptions: Dicyclomine HCl [Bentyl] 20 mg PO TIDAC #20 cap Prescription Printed Ondansetron [Zofran Odt] 8 mg PO Q8H PRN PRN #20 tab PRN Reason: Nausea Prescription Printed Referrals: Gordo Colon DO [NON CLINICAL AFFILIATE] -
[2020-01-22 22:25] LABS: Absolute Lymphocyte Count 4.27 X10^3/uL (0.83-4.51); Absolute Neutrophil Count 6.2 X10^3/uL (2.0-7.7); Basophil# 0.04 X10^3/uL; Basophil% 0.3 % (0-1); Eosinophil# 0.17 X10^3/uL; Eosinophils% 1.5 % (0-5); Hematocrit 45.4 % (40-54); Hemoglobin 15.5 g/dL (13.0-16.5); Lymphocyte # 4.27 X10^3/ul (4.0); Lymphocyte % 36.5 % (19-41); Mean Corp Hgb Conc 34.1 g/dL (32-36); Mean Corpuscular Hgb 30.8 pg (27.0-32.0); Mean Corpuscular Volume 90.1 fL (80-94); Mean Platelet Vol. 9.1 fl (6.2-12.0); Monocyte# 1.03 X10^3/uL; Monocyte% 8.8 % (0-10); NRBC Flagged by Analyzer 0 % (0-5); Neutrophil # 6.15 X10^3/uL (2.7-7.7); Neutrophil % 52.6 % (47-70); Platelet Count 228 K/mm3 (150-450); RBC Distribution Width CV 11.7 % (11.6-14.6); RBC Distribution Width SD 38.5 fl (35.1-43.9); Red Blood Count 5.04 M/mm3 (4.6-6.2); White Blood Count 11.7 K/mm3 (4.4-11.0)
[2020-01-22] MEDS: Ondansetron 4 MG/2 ML Vial IV (22:25)
[2020-01-22] MEDS: 0.9% Normal Saline 1,000 ML 1000 ML IV (22:25)
[2020-01-22] MEDS: Ketorolac 15 MG/ML Vial IV (22:27)
[2020-01-22 22:39] LABS: AST(SGOT) 13 U/L (15-37); Alanine Aminotransfer ALT/SGPT 34 U/L (16-61); Albumin, Serum 3.8 g/dL (3.2-5.0); Alkaline Phosphatase 59 U/L (45-117); Anion Gap 6 (5-15); BUN 14 mg/dL (7-18); Calcium,Total 9.8 mg/dL (8.5-10.1); Chloride 108 mmol/L (98-107); Creatinine, Serum 1.08 mg/dL (0.70-1.30); EST Glomerular Filtration Rate 87 mL/min (>60); Est Glom Filt Rate - Afr Amer 105 mL/min (>60); Estimated Creatinine Clearance 106.08 ml/min; Globulin 3.8 g/dL (2.2-4.2); Glucose 87 mg/dL (74-106); Lipase 103 U/L (73-393); Protein, Total 7.6 g/dL (6.4-8.2); Sodium Level 142 mmol/L (136-145)
[2020-01-22 23:29] LABS: Mucous, Urine 0 SEEN /hpf (<or=2+); Red Blood Cells-Urine 0 SEEN /hpf (0-5); Squamous Epithelial Cells - UA 0 SEEN /hpf (0-5)
[2020-01-22 23:31] LABS: Color, Urine Yellow (Yellow); Glucose, Dipstick Normal (Normal); Ketone-Dipstick Negative (Negative); Leukocyte Esterase-Dipstick Negative /ul (Negative); Nitrite-Dipstick Negative (Negative); Occult Blood-Urine Negative /ul (Negative); Protein-Dipstick Negative (Negative); Specific Gravity, Urine 1.015 (1.002-1.030); Urine Bilirubin Dipstick Negative (Negative); Urine Clarity Sl. Cloudy (Clear); Urine Urobilinogen Normal (Normal)
[2020-01-22 23:40] LABS: Amorphous Sediment 1+; Bacteria 2+ /hpf (None Seen); White Blood Cells 0-5 SEEN /hpf (0-5)
[2020-01-22] MEDS: Acetaminophen 500 MG Tablet 1000 MG PO (23:54)
[2020-01-22 23:56] VITALS: BP 126/76; PULSE 70; RESP 18; O2SAT 99
--- NOTE | 2020-01-23 00:12 | ED.RN ---
[facility] was called and spoke to Ashley, a nurse there. updated on pt diagnosis and plan for pt to be transported back to [facility] via mother. prescriptions sent with pt and paperwork from [facility] that needed returned. all discharge information was reviewed with pt and pt has no questions and verbalizes understanding.
== END 2020-01-23 00:11 | disposition home or self-care (01) ==
PROVIDERS: Emergency Medicine; Emergency Provider Emergency Medicine
DX: R10.31 Right lower quadrant pain (principal); R11.2 Nausea with vomiting, unspecified; F17.200 Nicotine dependence, unspecified, uncomplicated; Z88.1 Allergy status to other antibiotic agents; Z87.442 Personal history of urinary calculi
CPT/HCPCS: 74176; 80053; 81001; 83690; 85025; 96374; 96375; 99284; J7030; A4216; J2405